=== PATIENT | male | born 1980 | race Caucasian/White ===

== ENCOUNTER 2016-05-07 09:57 | Emergency (ER) | payer OTHER ==
[~2016-05-07] VITALS: Ht 172.7 cm; Wt 81.5 kg
[~2016-05-07 09:57] MED LIST: ARTHROTEC 751 TABLET PO; AUGMENTIN875 MG PO; BACTERICIN30 GM TP; CIPROFLOXACIN500 M1 PO; CLEOCIN300 MG PO; CLINDAMYCIN HC300 MG PO; ENDOCET 5-3251 EACH PO; Effexor XR PO; FLEXERIL10 MG PO; LASIX20 MG PO; LEVAQUIN750 MG PO; METHADONE HCL40 MG PO; MOTRIN800 MG PO; Methadone PO; NAPROXEN500 MG PO; NEURONTIN300 MG PO; NORCO 7.5/321 TABLET PO; OPANA; OPANA ER7.5 MG PO; OTC CREAM TP; OXYCODONE HCL10 MG PO; OXYCONTIN15 MG PO; PREDNISONE20 MG PO; PRILOSEC40 MG PO; PROAIR HFA8.5 GM IH; PROMETHAZINE HC25 M1 PO; TESSALON200 MG PO; TYLENOL EXTRA500 MG PO; TYLENOL REGULA325 MG PO; ULTRAM50 MG PO; gabapentin; omeprazole
[2016-05-07] MEDS ORDERED: MOTRIN400 MG PO (10:07)
[2016-05-07] MEDS ORDERED: TYLENOL EXTRA500 MG PO (10:07)
[2016-05-07] MEDS ORDERED: OMEPRAZOLE20 MG PO (10:08)
[2016-05-07 10:25] LABS: ADD MIUA? NO; BILIRUBIN NEGATIVE; BLOOD NEGATIVE; COLOR YELLOW ((YELLOW)); GLUCOSE (STRIP) NEGATIVE; KETONES NEGATIVE; LEUKOCYTES NEGATIVE; NITRITE NEGATIVE; PROTEIN (STRIP) NEGATIVE; SPECIFIC GRAVITY 1.027 (1.000-1.030); UCUL ADDED? NO; UROBILINOGEN 0.2 MG/DL (0.2-1.0)
[2016-05-07] MEDS ORDERED: CLINDAMYCIN HC300 MG PO (14:23)
[2016-05-07] MEDS ORDERED: PERCOCET 5/31 TABLET PO (14:23)
[2016-05-07 14:49] VITALS: BP 115/72
== END 2016-05-07 14:50 | disposition home or self-care (01) ==
LOC: EME → EDBD 09:57 → EME 14:50
PROVIDERS: Emergency Medicine
DX: S39.94XA Unspecified injury of external genitals, initial encounter (principal); X58.XXXA Exposure to other specified factors, initial encounter; K21.9 Gastro-esophageal reflux disease without esophagitis; G89.29 Other chronic pain; Z87.442 Personal history of urinary calculi; F17.200 Nicotine dependence, unspecified, uncomplicated
CPT/HCPCS: 76882; 81003; 99281; 99284; J1170

== ENCOUNTER 2016-05-09 16:13 | Emergency (ER) | payer OTHER ==
[~2016-05-09] VITALS: Ht 172.7 cm; Wt 86.5 kg
[~2016-05-09 16:13] MED LIST changes: +MOTRIN400 MG PO; +OMEPRAZOLE20 MG PO; +PERCOCET 5/31 TABLET PO
[2016-05-09 17:09] LABS: MCH 30.2 PG (29.0-34.0); MCHC 34.2 G/DL (30.0-36.0); MCV 88.5 FL (86-99); MEAN PLAT.VOLUME 10.2 uM^3 (9.0-12.4); PLATELET COUNT 268 K/uL (156-360); RBC DIS.WIDTH-CV 13.6 % (11.8-14.6); RBC DIS.WIDTH-SD 43.5 % (39-53); RED BLOOD COUNT 4.86 M/uL (4.00-5.50); WHITE BLOOD COUNT 11.4 K/uL (4.1-10.2)
[2016-05-09 17:25] LABS: CHLORIDE 107 mEq/L (99-109); POTASSIUM 4.4 mEq/L (3.7-5.4); SODIUM 139 mEq/L (136-147)
[2016-05-09 17:27] LABS: GLUCOSE 130 mg/dL (70-99)
[2016-05-09 17:29] LABS: ANION GAP 13 MEQ/L (2-14); TOTAL BILIRUBIN 0.5 mg/dL (0.0-1.0)
[2016-05-09 17:31] LABS: ALKALINE PHOSPHATASE 75 IU/L (3-129); GFR ESTIMATE (CALCULATED) > 59 mL/min/
[2016-05-09 17:32] LABS: UREA NITROGEN (BUN) 19 mg/dL (9-23)
[2016-05-09 18:17] LABS: ADD MIUA? NO; BILIRUBIN NEGATIVE; BLOOD NEGATIVE; COLOR YELLOW ((YELLOW)); GLUCOSE (STRIP) NEGATIVE; KETONES NEGATIVE; LEUKOCYTES NEGATIVE; NITRITE NEGATIVE; PH, URINE 5.5 (5-8); PROTEIN (STRIP) TRACE; SPECIFIC GRAVITY 1.031 (1.000-1.030); UCUL ADDED? NO; UROBILINOGEN 0.2 MG/DL (0.2-1.0)
[2016-05-09 18:52] LABS: AMPHETAMINE NEGATIVE (500 ng/mL); BARBITURATES NEGATIVE (200 ng/mL); BENZODIAZEPINES NEGATIVE (150 ng/mL); COCAINE NEGATIVE (150 ng/mL); INTERNAL CONTROLS VALID? YES; METHADONE NEGATIVE (200 ng/mL); METHAMPHETAMINE NEGATIVE (500 ng/mL); OPIATES (MORPHINE) PRESUMPTIVE POSITIVE (100 ng/mL); OXYCODONE NEGATIVE (100 ng/mL); PHENCYCLIDINE NEGATIVE (25 ng/mL); PROPOXYPHENE NEGATIVE (300 ng/mL); THC CANNABINOIDS NEGATIVE (50 ng/mL); TRICYCLIC ANTIDEPRESSANTS NEGATIVE (300 ng/mL)
[2016-05-09 18:53] LABS: ADD MEDTOX COMMENT Y
[2016-05-09] MEDS ORDERED: VIBRAMYCIN100 MG PO (19:06)
[2016-05-09] MEDS ORDERED: INDOCIN25 MG PO (19:07)
[2016-05-09 19:30] VITALS: BP 115/60
== END 2016-05-09 19:31 | disposition home or self-care (01) ==
LOC: EME 16:13
DX: N48.21 Abscess of corpus cavernosum and penis (principal); N48.22 Cellulitis of corpus cavernosum and penis; G89.29 Other chronic pain; K21.9 Gastro-esophageal reflux disease without esophagitis; Z87.442 Personal history of urinary calculi; Z86.14 Personal history of Methicillin resistant Staphylococcus aureus infection; F17.200 Nicotine dependence, unspecified, uncomplicated
CPT/HCPCS: 80053; 81003; 84999; 85027; 99281; 99284; J1170

== ENCOUNTER 2016-06-14 13:55 | Emergency (ER) | payer OTHER ==
[~2016-06-14] VITALS: Ht 172.7 cm; Wt 86.8 kg
[~2016-06-14 13:55] MED LIST changes: +INDOCIN25 MG PO; +VIBRAMYCIN100 MG PO
[2016-06-14 13:59] VITALS: BP 134/88
[2016-06-14 15:14] LABS: EOSINOPHIL (%) 1.8 % (0-5); EOSINOPHIL COUNT 0.2 K/uL (0-0.3); HEMATOCRIT 40.2 % (38.0-50.0); IMMATURE GRANULOCYTE (%) 0.1 % (0.0-0.7); IMMATURE GRANULOCYTE COUNT 0.1 K/uL; LYMPHOCYTE COUNT 1.4 K/uL (1.0-2.8); MCH 30.9 PG (29.0-34.0); MCHC 34.1 G/DL (30.0-36.0); MCV 90.5 FL (86-99); MEAN PLAT.VOLUME 9.7 uM^3 (9.0-12.4); MONOCYTE COUNT 0.6 K/uL (0-0.8); NEUTROPHIL COUNT 6.7 K/uL (1.8-6.4); PLATELET COUNT 210 K/uL (156-360); RBC DIS.WIDTH-CV 13.7 % (11.8-14.6); RBC DIS.WIDTH-SD 44.2 % (39-53); RED BLOOD COUNT 4.44 M/uL (4.00-5.50); WHITE BLOOD COUNT 8.9 K/uL (4.1-10.2)
[2016-06-14 15:22] LABS: CHLORIDE 107 mEq/L (99-109); POTASSIUM 4.1 mEq/L (3.7-5.4); SODIUM 138 mEq/L (136-147)
[2016-06-14 15:25] LABS: GLUCOSE 89 mg/dL (70-99)
[2016-06-14 15:26] LABS: ANION GAP 10 MEQ/L (2-14); TOTAL BILIRUBIN 0.8 mg/dL (0.0-1.0)
[2016-06-14 15:27] LABS: SERUM ETHYL ALCOHOL < 10 mg/dL
[2016-06-14 15:28] LABS: ALKALINE PHOSPHATASE 81 IU/L (3-129); GFR ESTIMATE (CALCULATED) > 59 mL/min/
[2016-06-14 15:29] LABS: UREA NITROGEN (BUN) 18 mg/dL (9-23)
[2016-06-14 15:35] LABS: TROP-I INTERPRETATION NEGATIVE; TROPONIN-I < 0.01 ng/mL (0.0-0.30)
[2016-06-14 16:06] LABS: AMPHETAMINE NEGATIVE (500 ng/mL); BARBITURATES NEGATIVE (200 ng/mL); BENZODIAZEPINES NEGATIVE (150 ng/mL); COCAINE NEGATIVE (150 ng/mL); INTERNAL CONTROLS VALID? YES; METHADONE NEGATIVE (200 ng/mL); METHAMPHETAMINE NEGATIVE (500 ng/mL); OPIATES (MORPHINE) PRESUMPTIVE POSITIVE (100 ng/mL); OXYCODONE NEGATIVE (100 ng/mL); PHENCYCLIDINE NEGATIVE (25 ng/mL); PROPOXYPHENE NEGATIVE (300 ng/mL); THC CANNABINOIDS NEGATIVE (50 ng/mL); TRICYCLIC ANTIDEPRESSANTS NEGATIVE (300 ng/mL)
[2016-06-14 16:07] LABS: ADD MEDTOX COMMENT Y
[2016-06-14 16:33] LABS: OPIATES QUANTITATIVE VALUE 0 NG/ML
[2016-06-14] MEDS ORDERED: BENADRYL50 MG PO (17:37)
[2016-06-14] MEDS ORDERED: AMOXICILLIN500 M1 PO (17:37)
== END 2016-06-14 17:47 | disposition left against medical advice (07) ==
LOC: EME 13:55
PROVIDERS: Emergency Medicine
DX: F41.9 Anxiety disorder, unspecified (principal); S09.8XXA Other specified injuries of head, initial encounter; S02.5XXA Fracture of tooth (traumatic), initial encounter for closed fracture; V86.99XA Unspecified occupant of other special all-terrain or other off-road motor vehicle injured in nontraffic accident, initial encounter; R07.9 Chest pain, unspecified; R42 Dizziness and giddiness; R11.0 Nausea; R19.7 Diarrhea, unspecified; R05 Cough; R50.9 Fever, unspecified; G89.29 Other chronic pain; Z79.891 Long term (current) use of opiate analgesic; F17.200 Nicotine dependence, unspecified, uncomplicated
CPT/HCPCS: 70450; 71020; 72125; 80053; 84484; 84999; 85025; 90839; 93005; 99281; 99284; G0480

== ENCOUNTER 2016-07-14 08:41 | Emergency (ER) | payer OTHER ==
[~2016-07-14] VITALS: Ht 172.7 cm; Wt 85.8 kg
[~2016-07-14 08:41] MED LIST changes: +AMOXICILLIN500 M1 PO; +BENADRYL50 MG PO
[2016-07-14 09:49] LABS: BASOPHIL COUNT 0.1 K/uL (0-0.1); EOSINOPHIL (%) 7.2 % (0-5); EOSINOPHIL COUNT 0.5 K/uL (0-0.3); HEMATOCRIT 39.9 % (38.0-50.0); IMMATURE GRANULOCYTE (%) 2.9 % (0.0-0.7); IMMATURE GRANULOCYTE COUNT 0.2 K/uL; INSTRUMENT ABS NEUTROPHIL CT 4.4 K/uL; LYMPHOCYTE COUNT 1.2 K/uL (1.0-2.8); MCH 29.7 PG (29.0-34.0); MCHC 32.3 G/DL (30.0-36.0); MCV 91.9 FL (86-99); MEAN PLAT.VOLUME 9.4 uM^3 (9.0-12.4); MONOCYTE (%) 6.2 % (3-12); MONOCYTE COUNT 0.4 K/uL (0-0.8); NEUTROPHIL (%) 65.3 % (45-76); NEUTROPHIL COUNT 4.4 K/uL (1.8-6.4); RBC DIS.WIDTH-CV 13.4 % (11.8-14.6); RBC DIS.WIDTH-SD 45.8 % (39-53); RED BLOOD COUNT 4.34 M/uL (4.00-5.50); WHITE BLOOD COUNT 6.8 K/uL (4.1-10.2)
[2016-07-14 09:55] LABS: PLATELET COUNT 278 K/uL (156-360)
[2016-07-14 10:00] LABS: CHLORIDE 107 mEq/L (99-109); POTASSIUM 4.7 mEq/L (3.7-5.4); SODIUM 139 mEq/L (136-147)
[2016-07-14 10:01] LABS: GLUCOSE 98 mg/dL (70-99)
[2016-07-14 10:03] LABS: ANION GAP 10 MEQ/L (2-14)
[2016-07-14 10:05] LABS: GFR ESTIMATE (CALCULATED) > 59 mL/min/
[2016-07-14 10:06] LABS: UREA NITROGEN (BUN) 13 mg/dL (9-23)
[2016-07-14] MEDS ORDERED: ZOFRAN4 MG PO (10:33)
[2016-07-14 10:43] VITALS: BP 171/94
== END 2016-07-14 11:11 | disposition home or self-care (01) ==
LOC: EME 08:41
PROVIDERS: Physician Assistant Medical
DX: L02.416 Cutaneous abscess of left lower limb (principal); I10 Essential (primary) hypertension; K21.9 Gastro-esophageal reflux disease without esophagitis; Z87.442 Personal history of urinary calculi; Z86.14 Personal history of Methicillin resistant Staphylococcus aureus infection; F17.200 Nicotine dependence, unspecified, uncomplicated
CPT/HCPCS: 80048; 83605; 85025; 87040; 99281; 99285; J1956; J2270; J2405; J7030

== ENCOUNTER 2017-11-22 06:44 | Emergency (ER) | payer BC, OTHER ==
[~2017-11-22] VITALS: Ht 172.7 cm; Wt 96.2 kg
[~2017-11-22 06:44] MED LIST changes: +ZOFRAN4 MG PO
[2017-11-22 08:03] LABS: HEMATOCRIT 35.2 % (38.0-50.0); HEMOGLOBIN 11.9 G/DL (12.5-16.6); MCHC 33.8 G/DL (30.0-36.0); MCV 91.7 FL (86-99); PLATELET COUNT 201 K/uL (156-360); RBC DIS.WIDTH-CV 14.1 % (11.8-14.6); RBC DIS.WIDTH-SD 47.8 % (39-53); RED BLOOD COUNT 3.84 M/uL (4.00-5.50); WHITE BLOOD COUNT 7.1 K/uL (4.1-10.2)
[2017-11-22 08:18] LABS: ALBUMIN 3.6 g/dL (3.2-4.8); CHLORIDE 107 mEq/L (99-109); POTASSIUM 4.3 mEq/L (3.7-5.4); SODIUM 141 mEq/L (136-147)
[2017-11-22 08:20] LABS: GLUCOSE 108 mg/dL (70-99); TOTAL PROTEIN 6.2 g/dL (6.4-8.3)
[2017-11-22 08:22] LABS: TOTAL BILIRUBIN 0.2 mg/dL (0.0-1.0)
[2017-11-22 08:24] LABS: ALKALINE PHOSPHATASE 71 IU/L (3-129); CREATININE 0.7 mg/dL (0.6-1.3); GFR ESTIMATE (CALCULATED) > 59 mL/min/ (58.99-99999)
[2017-11-22 08:25] LABS: UREA NITROGEN (BUN) 14 mg/dL (9-23)
[2017-11-22 08:26] LABS: AST (GOT) 36 IU/L (2-34)
[2017-11-22 08:27] LABS: ALT (GPT) 48 IU/L (3-49)
[2017-11-22 09:04] VITALS: BP 111/51
== END 2017-11-22 09:05 | disposition home or self-care (01) ==
LOC: EME 06:44
PROVIDERS: Emergency Medicine
DX: R60.0 Localized edema (principal); Z87.448 Personal history of other diseases of urinary system; L29.9 Pruritus, unspecified; R51 Headache; R06.02 Shortness of breath; Z86.14 Personal history of Methicillin resistant Staphylococcus aureus infection; F17.200 Nicotine dependence, unspecified, uncomplicated
CPT/HCPCS: 71045; 80048; 80053; 82140; 83880; 85027; 99281; 99285